=== PATIENT | female | born 1990 | race Caucasian/White ===

== ENCOUNTER 2020-05-02 07:10 | Inpatient (IN) | payer BC ==
[2020-05-02] MEDS ORDERED: OXYTOCIN 10 UNIT/ML 1 ML VIAL IM PRN (08:11)
[2020-05-02] MEDS ORDERED: TERBUTALINE 1 MG/ML VIAL SQ PRN (08:11)
[2020-05-02] MEDS ORDERED: METHYLERGONOVINE 0.2 MG/ML 1 ML AMP IM PRN (08:11)
[2020-05-02] MEDS ORDERED: LIDOCAINE 0.5% (PF) 5 MG/ML (50 ML SDV) SQ PRN (08:11)
[2020-05-02] MEDS ORDERED: CARBOPROST TROMETHAMINE 250 MCG/ML 1 ML AMP IM PRN (08:11)
[2020-05-02] MEDS ORDERED: BUTORPHANOL 1 MG/ML 1 ML VIAL IV PRN (08:12)
[2020-05-02 08:23] LABS: Basophils % (A) 0 %; Eosinophils # (A) 0.1 k/uL (0-0.7); Eosinophils % (A) 1 %; HGB 11.3 gm/dL (11.4-16.0); Hypochromasia Slight; Lymphocytes # (A) 1.2 k/uL (1.0-4.8); Lymphocytes % (A) 11 %; MCH 28.3 pg (25.0-35.0); MCHC 33.3 g/dL (31.0-37.0); Mean Platelet Volume 8.1; Monocytes # (A) 0.5 k/uL (0-1.0); Monocytes % (A) 5 %; Neutrophils # (A) 8.3 k/uL (1.3-7.7); Neutrophils % (A) 82 %; Platelet Count 217 k/uL (150-450); Poikilocytosis Moderate; RDW 15.5 % (11.5-15.5); WBC 10.1 k/uL (3.8-10.6)
[2020-05-02] MEDS ORDERED: BENZOCAINE/MENTHOL SPRAY 1 GM/SPRAY AEROSOL TOPICAL PRN (09:18)
[2020-05-02] MEDS ORDERED: HYDROcodone/APAP 7.5-325MG 1 EACH TAB PO PRN (09:18)
[2020-05-02] MEDS ORDERED: diphenhydrAMINE 50 MG CAP PO PRN ×2 (09:18)
[2020-05-02] MEDS ORDERED: diphenhydrAMINE 50 MG/ML 1 ML VIAL IVP PRN ×4 (09:18)
[2020-05-02] MEDS ORDERED: LANOLIN CREAM 5 GM TUBE TOPICAL PRN (09:18)
[2020-05-02] MEDS ORDERED: HYDROcodone/APAP 5-325MG 1 EACH TAB PO PRN (09:18)
[2020-05-02] MEDS ORDERED: HYDROCORTISONE 2.5% RECTAL CREAM 30 GM TUBE RECTAL PRN (09:18)
[2020-05-02] MEDS ORDERED: ZOLPIDEM 5 MG TAB PO PRN (09:18)
[2020-05-02] MEDS ORDERED: diphenhydrAMINE 25 MG CAP PO PRN ×2 (09:18)
[2020-05-02] MEDS ORDERED: SIMETHICONE 80 MG CHEWABLE PO PRN (09:18)
[2020-05-02] MEDS: IBUPROFEN 600 MG TAB PO SCH ×2 (09:26→16:54)
[2020-05-02] MEDS ORDERED: OXYTOCIN 30 UNITS/500 ML NS 30 UNIT in SALINE 1 500ML.BAG IV SCH (09:30)
[2020-05-02] MEDS: LACTATED RINGERS 1,000 ML IV SCH ×2 (11:21→20:06)
--- NOTE | 2020-05-02 13:13 | P.HPOB ---
History of Present Illness H&P Date: 05/02/20 Chief Complaint: 38-4/7 weeks, active labor The patient is a 30-year-old 2 para 0101 admitted at 38-4/7 weeks as established by last menstrual period and confirmed by second trimester ultrasound. She is admitted in active labor with all signs reassuring. Her has been uncomplicated though she carries a history of a previous delivery at approximate 36 weeks of gestation. There have been no concerns or in this aside from an episode at which time she is positive for chronic virus and has recovered entirely. Group B strep status is negative. On labor and delivery, all signs reassuring with a category 1 heart rate tracing. Obstetrical history: 2 para 0101 with current statistics listed in history of present illness. She has had a previous 36 week normal vaginal delivery without Medications. Laboratory workup demonstrates a blood type of A+ with a negative antibody screen. Rubella status is immune. Remainder of the laboratory workup was within normal limits. One hour Glucola was normal and group B strep status is negative. Catgut history: Unremarkable with no history of any infections to include STDs. Review of Systems Review of systems is confined to history of present illness. Past Medical History Past Medical History: No Reported History History of Any Multi-Drug Resistant Organisms: None Reported Past Surgical History: No Surgical Hx Reported Additional Past Surgical History / Comment(s): IVF egg retrieval. Past Anesthesia/Blood Transfusion Reactions: No Reported Reaction Past Psychological History: Anxiety, Depression Smoking Status: Never smoker Past Alcohol Use History: None Reported Past Drug Use History: None Reported - Past Family History Mother Additional Family Medical History / Comment(s): hx of colitis Medications and Allergies Home Medications Medication Instructions Recorded Confirmed Type Sertraline [Zoloft] 100 mg PO HS 05/02/20 05/02/20 History Allergies Allergy/AdvReac Type Severity Reaction Status Date / Time No Known Allergies Allergy Verified 05/02/20 07:32 Exam Vital Signs Temp Pulse Resp BP Pulse Ox 05/02/20 10:45 98.3 F 88 16 105/55 05/02/20 10:15 96 16 101/58 05/02/20 09:45 78 16 99/58 05/02/20 09:30 102 H 16 99/65 05/02/20 09:15 91 16 94/57 05/02/20 09:00 91 16 94/57 05/02/20 08:45 81 16 107/65 05/02/20 08:04 97.2 F L 99 16 108/71 97 Intake and Output 05/01/20 05/02/20 05/02/20 22:59 06:59 14:59 Output Total 800 Balance -800 Output: Estimated Blood Loss 800 Other: Weight 78.471 kg General, this is a well-developed, well-nourished white female in significant discomfort as she is near delivery at the time of my presentation. Her heart has a regular rhythm and rate without murmur. Her lungs clear to auscultation bilaterally in all castano. Her abdomen is gravid, nondistended, has normal active bowel sounds, soft, nontender, and without any palpable masses aside from uterine fundus. Her extremities without any cyanosis, clubbing, or edema and are nontender to palpation. Digital cervical exam in addition demonstrates the patient to be completely dilated with the vertex in presentation at +2 station. Results Result Diagrams: 05/02/20 08:10 Abnormal Lab Results - Last 24 Hours (Table) 05/02/20 Range/Units 08:10 Hgb 11.3 L (11.4-16.0) gm/dL Neutrophils # 8.3 H (1.3-7.7) k/uL Assessment and Plan (1) Active labor at term Current Visit: Yes Status: Acute Code(s): [id number] - SNOMED Code(s): 17126585 Plan: The patient is admitted for active management of labor. She'll continue to have close maternal surveillance and expectant management will be practiced with an anticipated normal vaginal delivery in the very near future.
--- NOTE | 2020-05-02 13:15 | P.PROBDLV ---
Vaginal Delivery Note - . Vaginal Delivery Note: The patient is a 30-year-old 2 para 0101 admitted at 38-4/7 weeks by good dating parameters. She is admitted in active labor with all signs reassuring. She also has had spontaneous rupture of membranes for clear fluid. Her has been uncomplicated though she did have coronavirus documented and has a complete recovery. Group B strep status is negative. On labor and delivery, she made rapid progress to complete and then pushed over the course of approximately 15-20 minutes to a normal spontaneous vaginal delivery of a viable 6 lbs. 13 oz. baby girl with Apgars of 9 at 1 minute 9 at 5 minutes delivered in the direct occiput anterior position. There was a nuchal cord 1 which was reduced following delivery of the infant. The placenta was delivered spontaneously, intact, and grossly normal with a grossly normal three-vessel cord inserted near the edge of the placental disc. There was a second-degree midline perineal laceration noted which was repaired in standard fashion using 3-0 chromic catgut without difficulty. Estimated blood loss for the entire process was approximately 400 mL. There were no compilations. All sponge, instrument, needle counts were correct. Both mother and infant are resting comfortably in recovery.
[2020-05-02] MEDS: ACETAMINOPHEN TAB 325 MG TAB PO PRN ×2 (14:28→20:05)
[2020-05-02] MEDS: SENNOSIDES-DOCUSATE SODIUM 1 EACH TAB PO SCH (20:05)
[2020-05-03] MEDS: IBUPROFEN 600 MG TAB PO SCH ×3 (00:39→11:30)
[2020-05-03] MEDS: LACTATED RINGERS 1,000 ML IV SCH ×2 (00:40→11:31)
[2020-05-03] MEDS: SENNOSIDES-DOCUSATE SODIUM 1 EACH TAB PO SCH (08:25)
--- NOTE | 2020-05-03 08:44 | P.DS ---
Providers Date of admission: 05/02/20 07:43 Expected date of discharge: 05/03/20 Attending physician: Patria Yost Primary care physician: Stated None - Discharge Diagnosis(es) (1) Active labor at term Current Visit: Yes Status: Acute (2) Normal spontaneous vaginal delivery Current Visit: Yes Status: Acute (3) Perineal laceration with delivery, second degree Current Visit: Yes Status: Acute (4) Spontaneous onset of labor Current Visit: No Status: Acute (5) Spontaneous rupture of membranes Current Visit: No Status: Acute Hospital Course: This is a 30-year-old 2 now para 2 woman who presented at 38-4/7 weeks gestation station with spontaneous rupture of membranes and active labor. On upon presentation to labor and delivery triage she was 5 cm dilated. She was admitted to a room and was found to be completely dilated approximately half an hour later. She went on to deliver a liveborn female over second-degree perineal laceration weighing 6 lbs. 13 oz. with Apgars of 9 at 1 minute and 9 at 5 minutes. Please see the delivery summary for details. Her course was unremarkable. By day #1 her vital signs were stable, her lochia was decreasing, she is breast feeding successfully and her labs were within normal limits. She was able to ambulate and void spontaneously without difficulty. She was therefore discharged home with routine instructions for care and follow-up. Patient Condition at Discharge: Good Plan - Discharge Summary Discharge Rx Participant: No New Discharge Prescriptions: No Action Sertraline [Zoloft] 100 mg PO HS Discharge Medication List Sertraline [Zoloft] 100 mg PO HS 05/02/20 [History] Follow up Appointment(s)/Referral(s): Patria Yost MD [STAFF PHYSICIAN] - 6 Weeks Activity/Diet/Wound Care/Special Instructions: Follow-up in the office in 6 weeks . Call with any concerning signs or symptoms including heavy vaginal bleeding, severe abdominal pain, fever greater than 101, swelling or redness of the lower extremities, foul vaginal discharge, or signs of depression. Nothing in the vagina for 6 weeks after delivery, specifically no intercourse. Discharge Disposition: HOME SELF-CARE
[2020-05-03 09:19] LABS: Basophils % (A) 0 %; Eosinophils # (A) 0.1 k/uL (0-0.7); Eosinophils % (A) 1 %; HCT 28.6 % (34.0-46.0); Hypochromasia Slight; Lymphocytes # (A) 1.4 k/uL (1.0-4.8); Lymphocytes % (A) 15 %; MCH 28.8 pg (25.0-35.0); MCV 87.2 fL (80.0-100.0); Mean Platelet Volume 8.2; Monocytes # (A) 0.3 k/uL (0-1.0); Monocytes % (A) 4 %; Neutrophils # (A) 7.3 k/uL (1.3-7.7); Neutrophils % (A) 80 %; Platelet Count 221 k/uL (150-450); Poikilocytosis Moderate; RBC 3.28 m/uL (3.80-5.40); RDW 15.7 % (11.5-15.5); WBC 9.1 k/uL (3.8-10.6)
[2020-05-03 09:22] LABS: HGB 9.4 gm/dL (11.4-16.0)
[2020-05-03 10:39] VITALS: BP 124/60; PULSE 86; RESP 18; TEMP 98
== END 2020-05-03 11:00 | disposition home or self-care (01) | DRG 807 ==
LOC: FBPOP 07:10 → 4FBP 07:43
PROVIDERS: ADMIT Obstetrics & Gynecology; ATTEND Obstetrics & Gynecology
PROC: 10E0XZZ Delivery of Products of Conception, External Approach (ICD-10-PCS; principal; 2020-05-02)
PROC: 0KQM0ZZ Repair Perineum Muscle, Open Approach (ICD-10-PCS; 2020-05-02)
DX: O99.344 Other mental disorders complicating childbirth (principal); Z37.0 Single live birth; O69.81X0 Labor and delivery complicated by cord around neck, without compression, not applicable or unspecified; O70.1 Second degree perineal laceration during delivery; Z3A.38 38 weeks gestation of pregnancy; F32.9 Major depressive disorder, single episode, unspecified; F41.9 Anxiety disorder, unspecified
CPT/HCPCS: 59025; 84112; 85025; 86850; 86900; 86901; 99213